=== PATIENT | female | born 1975 | race Native Hawaiian/Other Pacific Islander ===

== ENCOUNTER 2017-04-20 11:35 | Outpatient (CLI) | payer OTHER | END 2017-04-20 19:08 | disposition home or self-care (01) | LOC: RAD 11:35 | DX: R04.2 Hemoptysis (principal) ==

== ENCOUNTER 2018-05-23 15:37 | Outpatient (CLI) | payer OTHER | END 2018-05-23 22:48 | disposition home or self-care (01) | LOC: RAD 15:37 → MAMMO 15:37 | DX: Z12.31 Encounter for screening mammogram for malignant neoplasm of breast (principal); M25.512 Pain in left shoulder; M54.5 Low back pain; M25.561 Pain in right knee ==

== ENCOUNTER → 2018-06-20 | Outpatient (CLI) | payer OTHER | LOC: RAD 10:29 | DX: M79.671 Pain in right foot (principal); M79.672 Pain in left foot ==

== ENCOUNTER 2018-07-20 13:34 | Outpatient (CLI) | payer OTHER | END 2018-07-20 19:14 | disposition home or self-care (01) | LOC: RAD 13:34 | DX: I73.9 Peripheral vascular disease, unspecified (principal) ==

== ENCOUNTER 2019-02-08 14:43 | Emergency (ER) | payer OTHER ==
[~2019-02-08] VITALS: Ht 172.7 cm; Wt 272.2 kg
[2019-02-08 14:57] VITALS: TEMP 98.1
[2019-02-08 15:47] LABS: PLATELET COUNT 165 K/uL (152-353)
[2019-02-08 15:56] LABS: POTASSIUM 3.5 mmol/L (3.6-5.2); SODIUM 142 mmol/L (136-145)
[2019-02-08 17:12] VITALS: BP 170/86
== END 2019-02-08 17:12 | disposition home or self-care (01) ==
LOC: ED 14:43
PROVIDERS: Emergency Medicine
DX: H65.191 Other acute nonsuppurative otitis media, right ear (principal)
CPT/HCPCS: 80053; 81000; 83036; 84484; 85027; 87502; 87651; 93005; 99283

== ENCOUNTER 2020-08-07 16:59 | Emergency (ER) | payer OTHER ==
[~2020-08-07] VITALS: Ht 172.7 cm; Wt 272.2 kg
[2020-08-07 16:59] VITALS: TEMP 98.1
[2020-08-07] MEDS ORDERED: QUET300T PO (17:18)
[2020-08-07] MEDS ORDERED: LIPITOR10 MG PO (17:19)
[2020-08-07] MEDS ORDERED: CLON1TAB18 PO (17:19)
[2020-08-07] MEDS ORDERED: CLARITIN RDT10 MG PO (17:19)
[2020-08-07] MEDS ORDERED: ACET-689 PO (17:20)
[2020-08-07] MEDS ORDERED: OMEPRAZOLE DR40 MG PO (17:21)
[2020-08-07 17:31] LABS: PLATELET COUNT 131 K/uL (152-353)
[2020-08-07 17:40] LABS: POTASSIUM 4.2 mmol/L (3.6-5.2); SODIUM 137 mmol/L (136-145)
[2020-08-07 18:15] VITALS: BP 130/79
== END 2020-08-07 18:30 | disposition home or self-care (01) ==
LOC: ED 17:03
PROVIDERS: Emergency Medicine
DX: I47.1 Supraventricular tachycardia (principal); Z20.822 Contact with and (suspected) exposure to COVID-19
CPT/HCPCS: 80053; 83880; 84484; 85027; 87635; 93005; 99284; U0003

== ENCOUNTER 2021-08-26 13:37 | Outpatient (CLI) | payer OTHER ==
[~2021-08-26 13:37] MED LIST: ACET-689 PO; CLARITIN RDT10 MG PO; CLON1TAB18 PO; LIPITOR10 MG PO; OMEPRAZOLE DR40 MG PO; QUET300T PO
== END 2021-08-26 19:16 | disposition home or self-care (01) ==
LOC: RAD 13:37
PROVIDERS: ATTEND Registered Nurse
DX: M54.2 Cervicalgia (principal)